=== PATIENT | female | born 1970 | race Two or more races ===

== ENCOUNTER 2022-12-23 06:34 | Day surgery (SDC) | payer BC, SELFPAY ==
--- NOTE | 2022-12-22 13:07 | P.CONAN_ITS ---
Documented by User: Jenny Kat NP 12/22/22 13:07 HPI - Anesthesia Eval Consult details Narrative: 52yo F for [facility] Past Medical History Medical History (Updated 12/23/22 @ 07:35 by Ivette Bronson MD) Asthma SVT (supraventricular tachycardia) Surgical History Surgical History (Updated 12/23/22 @ 07:30 by Ivette Bronson MD) H/O section H/O mastopexy H/O: hysterectomy History of abdominoplasty Social History Social History (Updated 12/23/22 @ 07:35 by Ivette Bronson MD) Tobacco use type: Smokeless Tobacco e-Cigarette/Vaping Use: Currently Using Are you DNR?: No Advance Directives: No Advance Directives Information Provided: Yes Recently lost weight without trying: No Nutrition Risks: No Nutritional Risk Meds Allergies Allergy/AdvReac Type Severity Reaction Status Date / Time animal dander Allergy Unknown Verified 12/22/22 12:21 dust mites Allergy Unknown Uncoded 12/22/22 12:21 trees Allergy Unknown Uncoded 12/22/22 12:21 Home Medications Medication Instructions Recorded Confirmed Last Taken Type albuterol sulfate 90 mcg/actuation 2 puff inhalation Q4H PRN wheezing 12/22/22 12/22/22 12/23/22 History aerosol inhaler cetirizine 10 mg tablet 10 mg PO DAILY 12/22/22 12/22/22 12/20/22 History Exam Exam Date and Time: December 22, 2022 1307 Assessment and Plan Assessment Anesthesia Assessment: Chart Reviewed Documented by User: Ivette Bronson MD 12/23/22 07:40 [facility] Active Problems Active Problems: Asthma H/o liposuction Past Medical History Medical History (Updated 12/23/22 @ 07:35 by Ivette Bronson MD) Asthma SVT (supraventricular tachycardia) Family History Family history of problems with anesthesia: No Surgical History Surgical History (Updated 12/23/22 @ 07:30 by Ivette Bronson MD) H/O section H/O mastopexy H/O: hysterectomy History of abdominoplasty History of Problems with Anesthesia: No Social History Social History (Updated 12/23/22 @ 07:35 by Ivette Bronson MD) Tobacco use type: Smokeless Tobacco e-Cigarette/Vaping Use: Currently Using Are you DNR?: No Advance Directives: No Advance Directives Information Provided: Yes Recently lost weight without trying: No Nutrition Risks: No Nutritional Risk Meds Allergies Allergy/AdvReac Type Severity Reaction Status Date / Time animal dander Allergy Unknown Verified 12/22/22 12:21 dust mites Allergy Unknown Uncoded 12/22/22 12:21 trees Allergy Unknown Uncoded 12/22/22 12:21 Home Medications Medication Instructions Recorded Confirmed Last Taken Type albuterol sulfate 90 mcg/actuation 2 puff inhalation Q4H PRN wheezing 12/22/22 12/22/22 12/23/22 History aerosol inhaler cetirizine 10 mg tablet 10 mg PO DAILY 12/22/22 12/22/22 12/20/22 History Exam Height,Weight and Vital Signs: Height 5 ft 4 in Weight 80.286 kg Vital Signs Temp Pulse Resp BP Pulse Ox O2 Del Method 12/23/22 06:36 97 F 77 18 117/73 98 Room Air Airway Mallampati Class: II TM Dist: >3cm Neck ROM: Full Loose/Missing/Broken Teeth: No Heart: RRR Lungs: CTAB. No wheezes Assessment and Plan Assessment Anesthesia Assessment: Anesthesia Plan Discussed Final Anesthetic Review Family History of Problems with Anesthesia: No History of Problems with Anesthesia: No NPO: Yes ASA Class: II Final Preanesthetic Review: No Changes in Pt Med Stat, Meds/Allgs Chart Reviewed, Consent Obtained/Reviewed and Anes Risks/Benef Reviewed Patient Risk: Low Procedure Risk: Low Assessment/Block/Sedation in SS: Assess/Block/Sedation-SS Anesthetic Plan Anesthetic Plan: MAC: Disposition: Standard PACU
[2022-12-23 06:09] VITALS: BMI 30.4
[2022-12-23 06:36] VITALS: BP 117/73; PULSE 77; RESP 18; TEMP 36.1; O2SAT 98
[2022-12-23] MEDS: Lactated Ringers 1,000 ML 100 ML IVCONT (07:00)
--- NOTE | 2022-12-23 07:26 | MHC.SHP ---
Pre-Procedural Eval Section A Date of Service: 12/23/22 Section B Chief Complaint: Encounter for screening for malignant neoplasm Details of Present Illness: see H*P no changes Relevant Family History (Specify if Yes): No Relevant Social History: None Medical History: No relevant PMH History of Previous Operations: No relevant previous surgery Allergies: Allergies Allergy/AdvReac Type Severity Reaction Status Date / Time animal dander Allergy Unknown Verified 12/22/22 12:21 dust mites Allergy Unknown Uncoded 12/22/22 12:21 trees Allergy Unknown Uncoded 12/22/22 12:21 Review of Systems Sugical H&P ROS: Negative: Constitution, Cardiovascular, Respiratory, Neurological, Psychiatric, Hem-Onc, Allergic/Immunologic, Gastrointestinal, Genitourinary, Musculoskeletal, Integumentary, Endocrine and Eyes/Ears/Nose/Throat Exam Surgical H&P Exam: Normal: HEENT, Normal: Heart, Normal: Lungs, Normal: Extremities, Normal: Abdomen, Normal: Skin and Normal: Neurological Plan Diagnosis/Plan: Unchanged I have reviewed the history and physical and performed a pertinent physical examination on my patient. No changes have occurred unless specified. Time Spent With Patient Time: Total time managing care of this patient today ____ minutes.
--- NOTE | 2022-12-23 07:59 | PM.OP ---
Brief Operative Note Date of Service: 12/23/22 Pre-op diagnosis: screening Post-op diagnosis: same Procedure: colonoscopy Surgeon: Yao Waggoner Anesthesia: MAC Was an Supply Chain Planner used for this Procedure?: No Estimated blood loss (mL): 2 Pathology: other Condition: stable Disposition: PACU
[2022-12-23 08:01] VITALS: BP 92/63; PULSE 92; RESP 16; TEMP 36.6; O2SAT 98
[2022-12-23 08:16] VITALS: BP 119/81; PULSE 78; RESP 16; TEMP 36.6; O2SAT 98
--- NOTE | 2022-12-23 08:25 | OP_ITS ---
SURGEON: Yao Waggoner MD INDICATIONS: Colon cancer screening. PREOPERATIVE DIAGNOSIS: POSTOPERATIVE DIAGNOSIS: PROCEDURE PERFORMED: Colonoscopy to the terminal ileum with biopsy and snare polypectomy. ESTIMATED BLOOD LOSS: COMPLICATIONS: ANESTHESIA: Monitored anesthesia care. ASSISTANTS: SPECIMENS: PROCEDURE DESCRIPTION: Date: 12/23/22. A history and physical were performed. The risks and benefits of the procedure were explained to the patient. Informed consent was obtained. The patient was placed in the left lateral decubitus position. A digital rectal exam was performed and was found to be normal. The Olympus pediatric video colonoscope was introduced into the rectum and advanced to the cecum without difficulty. The cecum was identified by transillumination, palpation, and identification of ileocecal valve. Examination was performed. The scope was removed. She tolerated the procedure well and was taken to recovery in stable condition. FINDINGS: The terminal ileum was examined and appeared normal. The visualized colonic mucosa was normal. The quality of the prep was good. Two polyps were identified. Both were less than 10 mm. The first was located at 70 cm in the right colon. Biopsy was obtained and then the polyp was removed with a cold snare. In the rectum, there was a less than 5 mm hyperplastic appearing sessile polyp, which was removed with a biopsy forceps. No other polyps were identified. The quality of the prep was good. Retroflexed examination was normal. IMPRESSION: Colon polyps. RECOMMENDATION: Follow up the biopsy results. MD QUE Bradley/JOSE MANUELL / [id number] MTDD
== END 2022-12-23 09:22 | disposition home or self-care (01) ==
PROVIDERS: PCP Internal Medicine; Visit Provider Internal Medicine Gastroenterology
PROC: 0DJD8ZZ Inspection of Lower Intestinal Tract, Via Natural or Artificial Opening Endoscopic (ICD-10-PCS; CPT 45378; principal; 2022-12-23 07:30)
DX: Z12.11 Encounter for screening for malignant neoplasm of colon (principal); Z80.0 Family history of malignant neoplasm of digestive organs; Z83.71 Family history of colonic polyps; K63.5 Polyp of colon; K62.1 Rectal polyp; K59.00 Constipation, unspecified; J45.909 Unspecified asthma, uncomplicated; F41.1 Generalized anxiety disorder; I47.1 Supraventricular tachycardia; Z79.899 Other long term (current) drug therapy; Z87.891 Personal history of nicotine dependence
CPT/HCPCS: 45385; 45380; 88305; 88341; 88342; J3010